=== PATIENT | female | born 1955 | race Two or more races ===

== ENCOUNTER 2020-02-14 01:11 | Inpatient (IN) | payer MEDICARE ==
[~2020-02-14] VITALS: Ht 157.5 cm; Wt 86.3 kg
[2020-02-14] MEDS ORDERED: ranitidine PO (02:51)
[2020-02-14] MEDS ORDERED: NITR0.4T48 SL (02:51)
[2020-02-14] MEDS ORDERED: GLIM2TAB PO (02:51)
[2020-02-14] MEDS ORDERED: APIX5TAB PO (02:51)
[2020-02-14] MEDS ORDERED: ROSU20TA2 PO (02:51)
[2020-02-14] MEDS ORDERED: CALC1TAB30 PO (02:51)
[2020-02-14] MEDS ORDERED: ICOS1CAP PO (02:51)
[2020-02-14] MEDS ORDERED: ASPI-1420 PO (02:51)
[2020-02-14] MEDS ORDERED: MICO45CR12 TOP (02:51)
[2020-02-14] MEDS ORDERED: MICO25PO2 MC (02:51)
[2020-02-14] MEDS ORDERED: LINA5TAB PO (02:51)
[2020-02-14] MEDS ORDERED: LEVO25TA7 PO (02:51)
[2020-02-14] MEDS ORDERED: INSU3INS8 SQ (02:51)
[2020-02-14] MEDS ORDERED: PREG75CA PO (02:51)
--- NOTE | 2020-02-14 03:00 | NUR ---
tele concession stand attendant initial notes Received direct admit pt from [place] . Pt is alert oriented x3 able to communicate using paper and pen because pt have problem of heard of hearing . i also noticed she used magnifying glass to read and per pt she had problem because of her blood sugar problem. skin warm and dry to touch, not in any distress noted. oriented where she at and how to used the call light system and pt understood well. applied tele monitor and educate pt what the purpose of it . Sinus Rhythm per monitor . kept her warm and comfortable at all times. will continue monitoring.
[2020-02-14 03:41] VITALS: BP 128/76
[2020-02-14] MEDS ORDERED: ZOLPIDEM TARTRATE 5 MG TABLET PO PRN (06:00)
[2020-02-14] MEDS ORDERED: ONDANSETRON HCL/PF 4 MG/2 ML VIAL IVP PRN (06:00)
[2020-02-14] MEDS ORDERED: NITROGLYCERIN 0.4 MG/TAB BOTTLE SL PRN (06:00)
[2020-02-14] MEDS ORDERED: ACETAMINOPHEN 325 MG TABLET PO PRN (06:00)
[2020-02-14] MEDS: HYDROCODONE/APAP 5/325MG TABLET PO PRN (06:17)
[2020-02-14 07:13] LABS: CALCIUM, SERUM 9.1 mg/dL (8.5-10.1); CARBON DIOXIDE 27 mmol/L (21-32); CHLORIDE 104 mmol/L (98-107); CREATININE 1.7 mg/dL (0.6-1.3); GLUCOSE 169 mg/dL (74-106); POTASSIUM 3.9 mmol/L (3.5-5.1); SODIUM SERUM 141 mmol/L (136-145); UREA NITROGEN, BLOOD 37 mg/dL (7-18)
[2020-02-14 07:17] LABS: BASOPHILS % (AUTO) 0.6 % (0.0-2.0); EOSINOPHILS % (AUTO) 3.7 % (0.0-6.0); HEMATOCRIT 37 % (33-45); HEMOGLOBIN 12.1 g/dL (11.5-14.8); LYMPHOCYTES # (AUTO) 2.2 /CMM (0.8-4.8); LYMPHOCYTES % (AUTO) 32.9 % (20.0-44.0); MEAN CORPUSCULAR HGB CONC 33 g/dl (31.0-36.0); MEAN CORPUSCULAR VOLUME 87 fL (82-100); MONOCYTES # (AUTO) 0.5 /CMM (0.1-1.30); MONOCYTES % (AUTO) 7.3 % (2.0-12.0); NEUTROPHILS # (AUTO) 3.7 /CMM (1.8-8.9); NEUTROPHILS % (AUTO) 55.5 % (43.0-81.0); PLATELET COUNT (AUTO) 234 /CMM (150-450); WHITE BLOOD COUNT (AUTO) 6.6 K/uL (4.3-11.0)
[2020-02-14 07:20] LABS: CHOLESTEROL 245 mg/dL (<200); HDL CHOLESTEROL 33 mg/dL (40-60); LDL 119 mg/dL (0-99); TRIGLYCERIDES 361 mg/dL (30-150)
[2020-02-14 07:26] LABS: ALANINE AMINOTRANSFERASE 17 U/L (12-78); ALBUMIN 3.4 g/dL (3.4-5.0); ALKALINE PHOSPHATASE 95 U/L (46-116); ASPARTATE AMINOTRANSFERASE 12 U/L (15-37); B-TYPE NATRIURETIC PEPTIDE 268 PG/ML (0-125); BILIRUBIN,TOTAL 0.4 mg/dL (0.2-1.0); PHOSPHORUS 3.9 mg/dL (2.5-4.9); TOTAL PROTEIN, SERUM 7.4 g/dL (6.4-8.2)
--- NOTE | 2020-02-14 07:29 | NUR ---
tele stock fitter closing notes pt sleeping comfortably in bed after pain meds given. no distress and discomfort noted at this time. tele SR per monitor. Vital signs stable and kept her warm and comfortable at all times. family called earlier because they want to speak to MD regarding the plan and pt condition. kept her warm and comfortable at all times. blood sugar checked 155 , no insulin given at this time because NPO for the meantime waiting for wireless internet installer consult. Endorse to am nurse for continuity of care. place call light at reach.
[2020-02-14] MEDS: LEVOTHYROXINE SODIUM 25 MCG TABLET PO SCH (07:30)
[2020-02-14] MEDS: PANTOPRAZOLE 40 MG TABLET.DR PO SCH (07:30)
[2020-02-14 08:00] VITALS: BP 118/62
--- NOTE | 2020-02-14 08:01 | NUR ---
DIRECTOR OF CARDIOLOGY SERVICE LINE OPENING NOTES BEDSIDE ENDORSEMENT DONE. PATIENT IS SLEEPING IN BED BUT ABLE TO BE AWAKENED. A/O X4, [place]- AND [place]-SPEAKING, ABLE TO MAKE NEEDS KNOWN. VERBALLY RESPONSIVE BUT CAMPO, USE OF COMMUNICATION BOARD UTILIZED, PATIENT USES MAGNIFYING GLASS FOR BETTER READING. BREATHING EVEN AND UNLABORED IN ROOM AIR, NO RESPIRATORY DISTRESS NOTED. IV LINE AT RIGHT AC #20, INTACT AND PATENT. CURRENTLY NPO FOR CARDIO CONSULT. SAFETY PRECAUTION IN PLACE: BED LOCKED AND ON LOWEST POSITION, SIDERAILS UP X2, CALL LIGHT W/IN REACH. WILL CONTINUE TO MONITOR.
[2020-02-14 08:42] LABS: IRON, SERUM 51 ug/dl (50-175); TOTAL IRON BINDING CAPACITY 292 ug/dl (250-450)
[2020-02-14 08:56] LABS: FERRITIN 244 ng/mL (8-388)
[2020-02-14] MEDS ORDERED: ATORVASTATIN 40 MG TABLET PO SCH (09:00)
[2020-02-14] MEDS ORDERED: INSULN 70/30 ASP+PRT/ASP MIX 100 UNIT/ML CARTRIDGE SQ SCH ×2 (09:00→17:00)
[2020-02-14] MEDS: ATORVASTATIN 40 MG TABLET PO SCH (10:06)
[2020-02-14] MEDS: BLOOD SUGAR DIAGNOSTIC 1 EACH STRIP IN SCH ×4 (10:06→22:31)
[2020-02-14] MEDS: DOCUSATE SODIUM 100 MG CAPSULE PO SCH ×2 (10:06→16:47)
[2020-02-14] MEDS: APIXABAN 5 MG TABLET PO SCH ×2 (10:07→16:48)
[2020-02-14] MEDS: GLIMEPIRIDE 1 MG TABLET PO SCH (10:10)
[2020-02-14] MEDS: CALCIUM CARB 600MG /VIT D 1 EACH TABLET PO SCH ×2 (10:10→16:48)
[2020-02-14] MEDS: LINAGLIPTIN 5 MG TABLET PO SCH (10:10)
[2020-02-14] MEDS: ASPIRIN EC 81 MG TABLET.DR PO SCH (10:11)
[2020-02-14] MEDS: CARVEDILOL 3.125 MG TABLET PO SCH ×2 (10:11→20:58)
[2020-02-14] MEDS: PREGABALIN 25 MG CAPSULE PO SCH ×2 (10:12→16:48)
[2020-02-14] MEDS: IV NS 0.9% 1,000 ML IV PRN ×2 (10:40→19:23)
--- NOTE | 2020-02-14 11:08 | NUR ---
RN NOTES PATIENT'S VASCEPA AND NOVOLOG FLEXPEN PROVIDED BY PATIENT AND GIVEN TO PHARMACY.
[2020-02-14] MEDS: INSULIN REGULAR, HUMAN 100 UNIT/ML 3 ML VIAL SQ PRN ×3 (12:29→22:30)
--- NOTE | 2020-02-14 15:48 | NUR ---
RN NOTES SPOKE W/ PHARMACIST AND INQUIRED ABOUT PATIENT'S INSULIN. PATIENT PROVIDED 2 INSULIN PENS: NOVOLOG AND TRESIBA FLEXTOUCH.
[2020-02-14 16:00] VITALS: BP 103/58
[2020-02-14] MEDS ORDERED: INSU100I24 SQ (16:35)
--- NOTE | 2020-02-14 16:43 | NUR ---
RN NOTES MED RECON DONE FOR NOVOLOG AND TRESIBA. PER PATIENT, SHE IS TAKING NOVOLOG 20UNITS TWICE A DAY BEFORE MEALS AND TRESIBA 30UNITS ONCE DAILY. INFORMED PHARMACIST OF PATIENT MEDS.
[2020-02-14] MEDS: VASCEPA 1 GRAM PO SCH (16:46)
[2020-02-14] MEDS: INSULIN ASPART/LISPRO 100 UNIT/ML CARTRIDGE SQ SCH (17:27)
--- NOTE | 2020-02-14 18:43 | NUR ---
PRODUCT MGMT DEV MANAGER CLOSING NOTES PATIENT IS IN BED RESTING, AWAKE AND VERBALLY RESPONSIVE. A/O X4, [place]- AND [place]-SPEAKING, ABLE TO MAKE NEEDS KNOWN. PATIENT IS [place], COMMUNICATES VIA WRITTEN FORMAT AND USES MAGNIFYING GLASS FOR BETTER READING. ON TELE MONITORING W/ READING OF SR, HR IN MID 60'S TO 70'S, NO CARDIAC DISTRESS NOTED. BREATHING EVEN AND UNLABORED IN ROOM AIR, NO RESPIRATORY DISTRESS NOTED. IV LINE AT RIGHT AC #20, INTACT AND PATENT, IVF OF NS @ 100ML/HR, INFUSING WELL. ABLE TO AMBULATE USING ASSISTIVE DEVICE W/ MIN ASSIST. VOIDED X1 TODAY. ALL DUE MEDS GIVEN. SAFETY PRECAUTION MAINTAINED: BED LOCKED AND ON LOWEST POSITION, SIDERAILS UP X2, CALL LIGHT W/IN REACH. ENDORSE TO GREEN CHAIN OFFBEARER RN FOR LANDON.
--- NOTE | 2020-02-14 19:10 | NUR ---
STUDIO MUSICIAN OPENING NOTES: RECEIVED PATIENT IN BED, ASLEEP,AROUSABLE. NO S/S OF DISTRESS NOTED. NO COMPLAIN OF PAIN. CALL LIGHT WITHIN REACH. BED IN LOWEST AND LOCKED POSITION. A/O X4.
[2020-02-14 20:00] VITALS: BP 91/52
[2020-02-15] VITALS: BP 105/59
[2020-02-15 04:00] VITALS: BP 124/59
--- NOTE | 2020-02-15 06:40 | NUR ---
EDGING MACHINE CATCHER CLOSING NOTES: PATIENT RESTING IN BED. A/O X4. NO S/S OF DISTRESS NOTED. NO COMPLAIN OF PAIN. CALL LIGHT WITHIN REACH. BED IN LOWEST AND LOCKED POSITION. RESTED THROUGHOUT THE NIGHT. AMBULATORY USING HER OWN WALKER.
[2020-02-15 06:49] LABS: ALBUMIN 3.2 g/dL (3.4-5.0); BILIRUBIN,TOTAL 0.4 mg/dL (0.2-1.0); CALCIUM, SERUM 9.5 mg/dL (8.5-10.1); CREATININE 2.1 mg/dL (0.6-1.3); POTASSIUM 4.4 mmol/L (3.5-5.1); TOTAL PROTEIN, SERUM 6.9 g/dL (6.4-8.2)
[2020-02-15] MEDS: INSULIN REGULAR, HUMAN 100 UNIT/ML 3 ML VIAL SQ PRN ×2 (07:01→12:25)
[2020-02-15] MEDS: BLOOD SUGAR DIAGNOSTIC 1 EACH STRIP IN SCH ×4 (07:03→21:30)
--- NOTE | 2020-02-15 07:30 | NUR ---
Opening Notes: Report received from night RN. Patient alert, awake, and oriented x4. Able to make needs known. Patient hard of hearing, cooperative, and compliant with treatments, medications and care. No SOB noted, no s/s of distress or discomfort. No c/o pain. Accuchecks done, no s/s of hypo/hyperglycemia noted. Had breakfast, tolerated well. Due medications given as ordered. Assisted with ADLs and transfers. Kept skin clean and dry. Patient able to ambulate and turn and reposition herself. Needs anticipated and attended. Fall precautions observed. Call light within reach.
[2020-02-15 08:00] VITALS: BP 108/45
--- NOTE | 2020-02-15 09:00 | NUR ---
Telemetry discontinued as ordered. No s/s of distress or discomfort. VS WNL.
[2020-02-15] MEDS: PANTOPRAZOLE 40 MG TABLET.DR PO SCH (09:40)
[2020-02-15] MEDS: GLIMEPIRIDE 1 MG TABLET PO SCH (09:41)
[2020-02-15] MEDS: LEVOTHYROXINE SODIUM 25 MCG TABLET PO SCH (09:41)
[2020-02-15] MEDS: VASCEPA 1 GRAM PO SCH ×2 (09:42→17:15)
[2020-02-15] MEDS: ASPIRIN EC 81 MG TABLET.DR PO SCH (09:42)
[2020-02-15] MEDS: DOCUSATE SODIUM 100 MG CAPSULE PO SCH ×2 (09:42→17:13)
[2020-02-15] MEDS: CALCIUM CARB 600MG /VIT D 1 EACH TABLET PO SCH ×2 (09:42→17:13)
[2020-02-15] MEDS: PREGABALIN 25 MG CAPSULE PO SCH ×2 (09:43→17:13)
[2020-02-15] MEDS: INSULIN DEGLUDEC SQ SCH (09:43)
[2020-02-15] MEDS: LINAGLIPTIN 5 MG TABLET PO SCH (09:43)
[2020-02-15] MEDS: ATORVASTATIN 40 MG TABLET PO SCH (09:43)
[2020-02-15] MEDS: INSULIN ASPART/LISPRO 100 UNIT/ML CARTRIDGE SQ SCH ×2 (09:46→17:05)
[2020-02-15] MEDS: CARVEDILOL 3.125 MG TABLET PO SCH ×2 (09:50→21:00)
[2020-02-15] MEDS: APIXABAN 2.5 MG TABLET PO SCH ×2 (09:56→17:14)
[2020-02-15 10:39] LABS: THYROID STIMULATING HORMONE 1.131 uIU/mL (0.358-3.74)
[2020-02-15] MEDS: IV NS 0.9% 1,000 ML IV PRN (14:23)
[2020-02-15 16:00] VITALS: BP 116/59
[2020-02-15] MEDS ORDERED: APIXABAN 5 MG TABLET PO SCH (17:00)
--- NOTE | 2020-02-15 18:16 | NUR ---
Closing Notes: Patient alert, awake and oriented x4. Patient able to make needs known. no c/o pain. Patient ambulatory with walker, able to turn and reposition herself. Assisted with ADLs and transfers. Linens changed, kept clean and dry. Accuchecks done, no s/s of hypo/hyperglycemia noted. Due medications given, no ASE noted. Needs anticipated and attended. Fall precautions observed. Call light within reach. VS WNL.
--- NOTE | 2020-02-15 19:30 | NUR ---
RN NOTE RECEIVED PATIENT SEATED IN BED, AO X 4, IN NO S/SX OF ACUTE DISTRESS AT THIS TIME. NO SOB NOTED. PATIENT'S BREATHING IS EVEN AND UNLABORED, SATURATING 95% ON ROOM AIR, HR IS 72. NOTED IV SITE AT RIGHT AC G20, PATENT AND FLUSHING WELL,NO S/S OF INFECTION OR INFILTRATION, WITH NS INFUSING AT 100 ML/HR. PATIENT IS AMBULATORY WITH WALKER ASSISTANCE. SAFETY MEASURES IMPLEMENTED PER PROTOCOL. PATIENT BED ALARM IS ON. HEAD OF BED ELEVATED. BED IS LOCKED, IN LOWEST POSITION AND SIDE RAILS UP. CALL LIGHT WITHIN REACH OF THE PATIENT. WILL CONTINUE TO MONITOR AND REASSESS FOR ANY CHANGES.
[2020-02-15 20:00] VITALS: BP 85/45
--- NOTE | 2020-02-15 21:00 | NUR ---
RN NOTE NOTED BP 85/45, AND BLOOD GLUCOSE 62. SCHEDULED CARVEDILOL 3.125 MG WAS HELD OFF FOR NOW, AND INSTRUCTED PATIENT TO ELEVATE BLE, AND TO DRINK OF ORANGE JUICE. BP RECHECKED, 97/51, BLOOD SUGAR RECHECKED, RESULTED 112. WILL CONTINUE TO MONITOR.
[2020-02-16] VITALS (7 sets, daily range): BP systolic 85–123; BP diastolic 45–66
[2020-02-16] MEDS: IV NS 0.9% 1,000 ML IV PRN (05:59)
[2020-02-16 06:30] LABS: BASOPHILS # (AUTO) 0.1 /CMM (0.0-0.2); BASOPHILS % (AUTO) 0.8 % (0.0-2.0); EOSINOPHILS % (AUTO) 4.3 % (0.0-6.0); HEMATOCRIT 31 % (33-45); HEMOGLOBIN 10.7 g/dL (11.5-14.8); LYMPHOCYTES # (AUTO) 2.3 /CMM (0.8-4.8); LYMPHOCYTES % (AUTO) 33.3 % (20.0-44.0); MEAN CORPUSCULAR HGB CONC 34 g/dl (31.0-36.0); MEAN CORPUSCULAR VOLUME 87 fL (82-100); MONOCYTES # (AUTO) 0.5 /CMM (0.1-1.30); MONOCYTES % (AUTO) 7.1 % (2.0-12.0); NEUTROPHILS # (AUTO) 3.7 /CMM (1.8-8.9); NEUTROPHILS % (AUTO) 54.5 % (43.0-81.0); PLATELET COUNT (AUTO) 190 /CMM (150-450); RED BLOOD CELL COUNT(AUTO) 3.61 MIL/uL (4.0-5.2); WHITE BLOOD COUNT (AUTO) 6.9 K/uL (4.3-11.0)
[2020-02-16 07:11] LABS: ALANINE AMINOTRANSFERASE 15 U/L (12-78); ALBUMIN 2.9 g/dL (3.4-5.0); ALKALINE PHOSPHATASE 83 U/L (46-116); ASPARTATE AMINOTRANSFERASE 11 U/L (15-37); BILIRUBIN,TOTAL 0.3 mg/dL (0.2-1.0); CALCIUM, SERUM 9.1 mg/dL (8.5-10.1); CARBON DIOXIDE 25 mmol/L (21-32); CHLORIDE 106 mmol/L (98-107); CREATININE 1.6 mg/dL (0.6-1.3); GLUCOSE 122 mg/dL (74-106); MAGNESIUM 1.9 mg/dL (1.8-2.4); PHOSPHORUS 3.6 mg/dL (2.5-4.9); POTASSIUM 4.2 mmol/L (3.5-5.1); SODIUM SERUM 139 mmol/L (136-145); TOTAL PROTEIN, SERUM 6.4 g/dL (6.4-8.2); UREA NITROGEN, BLOOD 38 mg/dL (7-18)
[2020-02-16] MEDS: BLOOD SUGAR DIAGNOSTIC 1 EACH STRIP IN SCH ×4 (07:24→21:37)
[2020-02-16] MEDS: INSULIN ASPART/LISPRO 100 UNIT/ML CARTRIDGE SQ SCH ×2 (07:30→17:16)
--- NOTE | 2020-02-16 07:30 | NUR ---
MS/RN INSULIN HELD INSULIN NOVOLOG HELD. PATIENT BLOOD SUGAR 128. ADMINISTERED TRESIBA 30 UNITS. WILL RECHECK BLOOD SUGAR
--- NOTE | 2020-02-16 07:45 | NUR ---
MS/RN OPENING NOTE PATIENT RECEIVED FROM MICROWAVE SUPERVISOR. PATIENT IS IN BED LAYING COMFORTABLY.. VS WITHIN NORMAL RANGE. NO ACUTE DISTRESS NOTED. SAFETY PRECAUTION IN PLACE. PATIENT BED IS LOCKED AND IN LOWEST POSITION. CALL LIGHT WITHIN REACH. WILL CONTINUE TO MONITOR AND ENSURE SAFETY.
--- NOTE | 2020-02-16 08:30 | NUR ---
MS/RN S/B DR. YODER S/B DR. YODER ORDERED MYOCARDIAL STRESS TEST FOR TOMORROW. CONSENT FORM TO BE OBTAINED.
[2020-02-16] MEDS: CALCIUM CARB 600MG /VIT D 1 EACH TABLET PO SCH ×2 (08:40→17:13)
[2020-02-16] MEDS: APIXABAN 2.5 MG TABLET PO SCH ×2 (08:41→17:14)
[2020-02-16] MEDS: LEVOTHYROXINE SODIUM 25 MCG TABLET PO SCH (08:43)
[2020-02-16] MEDS: ATORVASTATIN 40 MG TABLET PO SCH (08:43)
[2020-02-16] MEDS: DOCUSATE SODIUM 100 MG CAPSULE PO SCH ×2 (08:43→17:13)
[2020-02-16] MEDS: ASPIRIN EC 81 MG TABLET.DR PO SCH (08:43)
[2020-02-16] MEDS: GLIMEPIRIDE 1 MG TABLET PO SCH (08:43)
[2020-02-16] MEDS: PANTOPRAZOLE 40 MG TABLET.DR PO SCH (08:44)
[2020-02-16] MEDS: VASCEPA 1 GRAM PO SCH ×2 (08:45→17:14)
[2020-02-16] MEDS: CARVEDILOL 3.125 MG TABLET PO SCH ×2 (08:45→21:00)
[2020-02-16] MEDS: PREGABALIN 25 MG CAPSULE PO SCH ×2 (08:52→17:13)
[2020-02-16] MEDS: LINAGLIPTIN 5 MG TABLET PO SCH (08:52)
[2020-02-16] MEDS: INSULIN DEGLUDEC SQ SCH (08:53)
--- NOTE | 2020-02-16 11:00 | NUR ---
MS/RN CONSENT FORM CONSENT FORM SIGNED BY PATIENT CONSENTED FOR NM MYOCARDIAL STRESS TEST. PLACED IN FRONT OF CHART.
--- NOTE | 2020-02-16 11:18 | NUR ---
MS/RN S/B DR RUBIN S/B DR RUBIN. ORDERED TO HOLD IV FLUIDS UNTIL MIDNIGHT 2400. THEN RESUME AT CURRENT RATE, 100ML/HR, CAUSE PATIENT WILL BE NPO.
[2020-02-16] MEDS: INSULIN REGULAR, HUMAN 100 UNIT/ML 3 ML VIAL SQ PRN ×2 (12:20→21:37)
--- NOTE | 2020-02-16 12:28 | NUR ---
MS/RN INSULIN GIVEN REASSESSED PATIENTS BLOOD SUGAR, 193. INSULIN REGULAR 3 UNITS GIVEN. WILL RECHECK BLOOD SUGAR.
--- NOTE | 2020-02-16 18:32 | NUR ---
MS/RN CLOSING NOTE PATIENT REMAINS IN STABLE CONDITION. A/O X4, HARD OF HEARING. PATIENT ON RA WITH O2 SAT OF 100. NO DISTRESS NOTED. CONTINUES TO DENY ANY CHEST PAIN OR DISCOMFORT. AWARE OF THE NEED TO BE NPO OF 2400 FOR MYOCARDIAL STRESS TEST. CONSENT FORM SIGNED AND PLACED IN FRONT OF CHART. WILL CONTINUE TO MONITOR AND ENDORSE TO BRIDAL STYLIST SALES CONSULTANT.
--- NOTE | 2020-02-16 19:20 | NUR ---
RN CLOSING NOTES Received patient asleep on bed, on RA no signs of discomfort/respiratory distress noted at this time. Kept on bed clean, dry and comfortable. Call light within easy reach. Will continue to monitor accordingly. Addendum: 02/16/20 at 2004 by RAPHAEL HEARN RN RN OPENING NOTES
[2020-02-17] MEDS: BLOOD SUGAR DIAGNOSTIC 1 EACH STRIP IN SCH ×4 (06:37→21:50)
--- NOTE | 2020-02-17 06:40 | NUR ---
RN CLOSING NOTES Pt asleep, no new complaints made. Kept on NPO for stress test this AM. BS 137. All nursing needs attended. Pt refused IVF throughout the shift. Kept on bed clean, dry and comfortable. Endorsed.
[2020-02-17] MEDS: LEVOTHYROXINE SODIUM 25 MCG TABLET PO SCH (07:30)
[2020-02-17] MEDS: PANTOPRAZOLE 40 MG TABLET.DR PO SCH (07:30)
[2020-02-17] MEDS: INSULIN ASPART/LISPRO 100 UNIT/ML CARTRIDGE SQ SCH ×2 (07:30→17:30)
[2020-02-17 07:36] LABS: BASOPHILS % (AUTO) 0.6 % (0.0-2.0); EOSINOPHILS % (AUTO) 3.9 % (0.0-6.0); HEMATOCRIT 32 % (33-45); HEMOGLOBIN 10.7 g/dL (11.5-14.8); LYMPHOCYTES # (AUTO) 2.3 /CMM (0.8-4.8); LYMPHOCYTES % (AUTO) 33.8 % (20.0-44.0); MEAN CORPUSCULAR HGB CONC 34 g/dl (31.0-36.0); MEAN CORPUSCULAR VOLUME 87 fL (82-100); MONOCYTES # (AUTO) 0.5 /CMM (0.1-1.30); NEUTROPHILS # (AUTO) 3.7 /CMM (1.8-8.9); NEUTROPHILS % (AUTO) 53.7 % (43.0-81.0); PLATELET COUNT (AUTO) 194 /CMM (150-450); RED BLOOD CELL COUNT(AUTO) 3.63 MIL/uL (4.0-5.2); WHITE BLOOD COUNT (AUTO) 6.9 K/uL (4.3-11.0)
--- NOTE | 2020-02-17 07:40 | NUR ---
RN NOTE THE PATIENT IS RECEIVED IN BED. THE PATIENT IS ALERT AND ORIENTED X4. PATIENT IS HARD OF HEARING AND HAS POOR VISION. ABLE TO COMMUNICATE VERBALLY AND WRITING ON A PAPER. DENIES PAIN. IN ROOM AIR AND DENIES SOB. RESPIRATION REGULAR AND UNLABORED. PATIENT IN NO APPARENT DISTRESS. RAC G 20 PATENT AND SALINE LOCKED. BED LOW AND LOCKED. SIDE RAILS UP X2. CALL LIGHT WITHIN REACH. WILL CONTINUE TO MONITOR.
[2020-02-17 07:57] LABS: CALCIUM, SERUM 9.3 mg/dL (8.5-10.1); CREATININE 1.4 mg/dL (0.6-1.3); POTASSIUM 4.2 mmol/L (3.5-5.1)
[2020-02-17 08:00] VITALS: BP 112/59
--- NOTE | 2020-02-17 08:53 | NUR ---
RN NOTE THE PATIENT REFUSED 0730 BLOOD SUGAR CHECK DESPITE EXPLAINING RISKS AND BENEFITS. NOVOLOG 20 UNITS DUE AT 0730 IS NOT ADMINISTERED DUE TO PATIENT REFUSED BLOOD SUGAR CHECK AND THE PATIENT BEING NPO FOR DIAGNOSTIC TESTING. PATIENT`S LAST BLOOD SUGAR WAS TAKEN AT 0608 AND IT WAS 137.
[2020-02-17] MEDS ORDERED: REGADENOSON 0.4 MG/5 ML DISP.SYRIN IVP ONE (09:00)
[2020-02-17] MEDS: HYDROCODONE/APAP 5/325MG TABLET PO PRN (10:17)
[2020-02-17] MEDS: DOCUSATE SODIUM 100 MG CAPSULE PO SCH ×2 (10:17→17:23)
[2020-02-17] MEDS: PREGABALIN 25 MG CAPSULE PO SCH ×2 (10:17→17:23)
[2020-02-17] MEDS: CARVEDILOL 3.125 MG TABLET PO SCH ×2 (10:18→21:43)
[2020-02-17] MEDS: ASPIRIN EC 81 MG TABLET.DR PO SCH (10:18)
[2020-02-17] MEDS: LINAGLIPTIN 5 MG TABLET PO SCH (10:18)
[2020-02-17] MEDS: ATORVASTATIN 40 MG TABLET PO SCH (10:18)
[2020-02-17] MEDS: GLIMEPIRIDE 1 MG TABLET PO SCH (10:18)
[2020-02-17] MEDS: VASCEPA 1 GRAM PO SCH ×2 (10:19→17:24)
[2020-02-17] MEDS: APIXABAN 2.5 MG TABLET PO SCH ×2 (10:29→17:00)
[2020-02-17] MEDS: INSULIN DEGLUDEC SQ SCH (10:45)
--- NOTE | 2020-02-17 10:47 | NUR ---
RN NOTE TRESIBA GIVEN AFTER CHECKING BLOOD SUGAR WHICH WAS 162. PATIENT EATING AT THIS TIME.
[2020-02-17] MEDS: CALCIUM CARB 600MG /VIT D 1 EACH TABLET PO SCH ×2 (10:56→17:23)
--- NOTE | 2020-02-17 11:07 | NUR ---
RN NOTE MORNING MEDICATIONS WERE ADMINISTERED LATE BECAUSE THE PATIENT HAS BEEN NPO SINCE MIDNIGHT WAITING FOR DIAGNOSTIC TEST. SO, THE MEDICATIONS WERE GIVEN AFTER THE TEST.
[2020-02-17] MEDS: INSULIN REGULAR, HUMAN 100 UNIT/ML 3 ML VIAL SQ PRN ×4 (12:05→21:48)
[2020-02-17 16:00] VITALS: BP 104/54
--- NOTE | 2020-02-17 17:37 | NUR ---
RN NOTE ELIQUIS 2.5 DUE AT 1700 IS HELD PER MICHAEL RUBIN SINCE THE PATIENT IS SCHEDULED FOR PROCEDURE TOMORROW AM.
--- NOTE | 2020-02-17 18:12 | NUR ---
RN NOTE THE PATIENT ALERT AND ORIENTED X4. PATIENT IS HARD OF HEARING AND HAS POOR VISION. PATIENT ABLE COMMUNICATE VERBALLY AND NURSES ABLE TO COMMUNICATE WITH THE PATIENT USING PEN AND PAPER. THE PATIENT DENIES PAIN. IN ROOM AIR AND SATURATION IS AT 96%. DENIES SOB. RESPIRATION REGULAR AND UNLABORED. RAC G 20 PATENT AND NS INFUSING AT 100 ML/HR AND NO S/S INFILTRATION NOTED. BED LOW AND LOCKED. SIDE RIALS UP X2. CALL LIGHT WITHIN REACH. WILL ENDORSE TO PHYSICIAN ASSISTANT PRIMARY CARE.
--- NOTE | 2020-02-17 19:59 | NUR ---
MS/RN OPENING NOTE Patient awake sitting up in chair. A/O x4, hard of hearing with poor vision. Breathing even, clear, unlabored on room air. No acute distress or SOB. Skin is warm, pink, dry, appropriate for ethnicity, intact. Abdomen large, round soft, non-tender. BS hypoactive. Patient on cardiac diet. Urine output clear, yellow, without difficulty. Patient is ambulatory with BRP. IV site RAC 20g running NS @ 100 ml/hr, no redness or infiltration. Call light within reach.
[2020-02-17 20:00] VITALS: BP 130/97
[2020-02-17 23:40] VITALS: BP 135/91
--- NOTE | 2020-02-18 06:05 | NUR ---
MS/RN CLOSING NOTE Patient awake sitting up in chair. A/O x4, hard of hearing with poor vision. Breathing even, clear, unlabored on room air. No acute distress or SOB. Abdomen large, round soft, non-tender, no bowel movement this shift. Patient is NPO pending cardiac catheterization. Urine output clear, yellow, without difficulty. Patient is ambulatory with BRP. IV site RAC 20g running NS @ 100 ml/hr, no redness or infiltration. Call light within reach.
[2020-02-18] MEDS: BLOOD SUGAR DIAGNOSTIC 1 EACH STRIP IN SCH ×4 (06:32→22:10)
[2020-02-18] MEDS: LEVOTHYROXINE SODIUM 25 MCG TABLET PO SCH (06:33)
[2020-02-18] MEDS: INSULIN ASPART/LISPRO 100 UNIT/ML CARTRIDGE SQ SCH ×2 (06:33→16:48)
[2020-02-18] MEDS: PANTOPRAZOLE 40 MG TABLET.DR PO SCH (06:33)
--- NOTE | 2020-02-18 06:34 | NUR ---
MS/RN NOTE Patient blood sugar 144. Held insulin d/t patient NPO pending cardiac catheterization. Will continue to monitor.
[2020-02-18 08:00] VITALS: BP 97/57
--- NOTE | 2020-02-18 08:00 | NUR ---
RN OPENING NOTE Patient is resting in bed, A/O x4, showing no signs of acute distress or SOB, stable on RA. Patient denies pain at this time, patient is able to ambulate to the bathroom steady gait. Per Dr. Molina, patient is scheduled to have cardiac cath tomorrow in AM. Held anticoagulants this AM. Bed is in lowest position, side rails x3 in upright position, call light is within reach, fall safety and aspiration precautions enforced. Will continue with plan of care.
[2020-02-18] MEDS: DOCUSATE SODIUM 100 MG CAPSULE PO SCH ×2 (08:18→16:47)
[2020-02-18] MEDS: CALCIUM CARB 600MG /VIT D 1 EACH TABLET PO SCH ×2 (08:18→16:47)
[2020-02-18] MEDS: ASPIRIN EC 81 MG TABLET.DR PO SCH (08:19)
[2020-02-18] MEDS: GLIMEPIRIDE 1 MG TABLET PO SCH (08:19)
[2020-02-18] MEDS: ATORVASTATIN 40 MG TABLET PO SCH (08:19)
[2020-02-18] MEDS: LINAGLIPTIN 5 MG TABLET PO SCH (08:19)
[2020-02-18] MEDS: APIXABAN 2.5 MG TABLET PO SCH ×2 (08:21→16:59)
[2020-02-18] MEDS: CARVEDILOL 3.125 MG TABLET PO SCH ×2 (08:21→21:32)
[2020-02-18] MEDS: PREGABALIN 25 MG CAPSULE PO SCH ×2 (08:25→16:47)
[2020-02-18] MEDS: VASCEPA 1 GRAM PO SCH ×2 (08:26→16:47)
[2020-02-18] MEDS: INSULIN DEGLUDEC SQ SCH (08:27)
[2020-02-18] MEDS: INSULIN REGULAR, HUMAN 100 UNIT/ML 3 ML VIAL SQ PRN ×3 (12:14→22:10)
[2020-02-18 16:00] VITALS: BP 114/63
--- NOTE | 2020-02-18 16:59 | NUR ---
MS RN NOTES HELD ELIQUIS PER MD DUE TO CARDIAC CATH TOMORROW.
[2020-02-18 17:00] VITALS: BP 114/63
--- NOTE | 2020-02-18 18:35 | NUR ---
RN CLOSING NOTE Patient is resting in bed, A/O x4, showing no signs of acute distress or SOB, stable on RA. Patient is able to ambulate to the bathroom steady gait. Per Dr. Molina, patient is scheduled to have cardiac cath tomorrow in AM, NPO after midnight, consent is signed. Held anticoagulants this AM per MD. All patient needs met, all due medications given, patient is independent with care. Bed is in lowest position, side rails x3 in upright position, call light is within reach, fall safety and aspiration precautions enforced. Will endorse to shift stacker for LANDON.
--- NOTE | 2020-02-18 19:47 | NUR ---
MS RN NOTE: Received patient AM nurse. Observed patient sitting on side of bed, awake, alert, and oriented x4. Patient is hard of hearing but has a notebook to cummunicate. Able to make needs known. Noted IV access on right AC, 20 gauge, dry and intact, patent, no redness or infiltration. Patient breathing well on room air, no SOB or acute respiratory distress noted. Safety precaution is in place, bed is in the lowest level, brakes are on, side rails x2 are up, and call light is within reach. Will continue to monitor.
[2020-02-18 20:00] VITALS: BP 121/69
[2020-02-18 20:44] VITALS: BP 121/69
--- NOTE | 2020-02-18 22:14 | NUR ---
MS RN NOTE: Patient glucose 57. Gave patient orange juice and raised her glucose level to 69. Gave patient more juice, will continue to monitor.
[2020-02-19] VITALS (35 sets, daily range): BP systolic 77–148; BP diastolic 38–85
--- NOTE | 2020-02-19 00:07 | NUR ---
MS RN NOTE: Rechecked patient's blood glucose and resulted in 107.
[2020-02-19] MEDS: BLOOD SUGAR DIAGNOSTIC 1 EACH STRIP IN SCH ×4 (06:33→21:26)
[2020-02-19] MEDS: INSULIN REGULAR, HUMAN 100 UNIT/ML 3 ML VIAL SQ PRN ×2 (06:34→21:18)
--- NOTE | 2020-02-19 06:54 | NUR ---
MS RN CLOSING NOTE: Patient in bed awake and alert. All needs met. Patient breathing well with no SOB or respiratory distress. Safety precaution in place, bed is in the lowest level, alarm is on, brakes are on, side rails x2 are up, and call light is within reach. Will endorse to next shift.
[2020-02-19] MEDS: LEVOTHYROXINE SODIUM 25 MCG TABLET PO SCH (07:30)
[2020-02-19] MEDS: PANTOPRAZOLE 40 MG TABLET.DR PO SCH (07:30)
[2020-02-19] MEDS: INSULIN ASPART/LISPRO 100 UNIT/ML CARTRIDGE SQ SCH ×2 (07:30→16:30)
--- NOTE | 2020-02-19 07:30 | NUR ---
MS/RN OPENING NOTE Patient resting in bed, A&O x 4, [place]. Denies any pain and discomfort at this time. Breathing even and non-labored on RA, no SOB noted. No cardiac distress noted. IV access noted on RAC #20 and L AC #18, both patent and intact, and flushing well. Sensation from all peripheral extremities intact. Side rails x 2 up, bed locked to its lowest position, call light in hand. Kept NPO, held insulin aspart/lispro, BS 71. Will continue with current medical management.
[2020-02-19 08:11] LABS: BASOPHILS # (AUTO) 0.1 /CMM (0.0-0.2); BASOPHILS % (AUTO) 0.7 % (0.0-2.0); EOSINOPHILS % (AUTO) 5.4 % (0.0-6.0); HEMATOCRIT 34 % (33-45); HEMOGLOBIN 11.3 g/dL (11.5-14.8); LYMPHOCYTES # (AUTO) 2.8 /CMM (0.8-4.8); LYMPHOCYTES % (AUTO) 37.1 % (20.0-44.0); MEAN CORPUSCULAR HGB CONC 34 g/dl (31.0-36.0); MEAN CORPUSCULAR VOLUME 88 fL (82-100); MONOCYTES # (AUTO) 0.6 /CMM (0.1-1.30); MONOCYTES % (AUTO) 7.4 % (2.0-12.0); NEUTROPHILS # (AUTO) 3.7 /CMM (1.8-8.9); NEUTROPHILS % (AUTO) 49.4 % (43.0-81.0); PLATELET COUNT (AUTO) 226 /CMM (150-450); RED BLOOD CELL COUNT(AUTO) 3.82 MIL/uL (4.0-5.2); WHITE BLOOD COUNT (AUTO) 7.5 K/uL (4.3-11.0)
[2020-02-19 08:22] LABS: ALBUMIN 3.2 g/dL (3.4-5.0); BILIRUBIN,TOTAL 0.3 mg/dL (0.2-1.0); CALCIUM, SERUM 9.6 mg/dL (8.5-10.1); CREATININE 1.5 mg/dL (0.6-1.3); MAGNESIUM 1.9 mg/dL (1.8-2.4); PHOSPHORUS 5.2 mg/dL (2.5-4.9); POTASSIUM 4.7 mmol/L (3.5-5.1); TOTAL PROTEIN, SERUM 7.1 g/dL (6.4-8.2)
[2020-02-19] MEDS ORDERED: IODIXANOL 150 ML IV ONE ×2 (08:53→09:23)
[2020-02-19] MEDS ORDERED: LIDOCAINE HCL/PF 1% 30 ML SDV ONE (08:54)
[2020-02-19] MEDS: CARVEDILOL 3.125 MG TABLET PO SCH ×2 (09:00→20:57)
[2020-02-19] MEDS: LINAGLIPTIN 5 MG TABLET PO SCH (09:00)
[2020-02-19] MEDS: DOCUSATE SODIUM 100 MG CAPSULE PO SCH ×2 (09:00→17:50)
[2020-02-19] MEDS: ATORVASTATIN 40 MG TABLET PO SCH (09:00)
[2020-02-19] MEDS: INSULIN DEGLUDEC SQ SCH (09:00)
[2020-02-19] MEDS: VASCEPA 1 GRAM PO SCH ×2 (09:00→17:50)
[2020-02-19] MEDS: PREGABALIN 25 MG CAPSULE PO SCH ×2 (09:00→17:50)
[2020-02-19] MEDS: APIXABAN 2.5 MG TABLET PO SCH ×2 (09:00→17:51)
[2020-02-19] MEDS: GLIMEPIRIDE 1 MG TABLET PO SCH (09:00)
[2020-02-19] MEDS: ASPIRIN EC 81 MG TABLET.DR PO SCH (09:00)
[2020-02-19] MEDS: CALCIUM CARB 600MG /VIT D 1 EACH TABLET PO SCH ×2 (09:00→17:50)
--- NOTE | 2020-02-19 09:00 | NUR ---
MS/RN NOTE Patient left to OR for cardiac cath. Groin prepped by CHIEF SUBSTATION OPERATOR. Consents and hospital documentation were brought in hand.
[2020-02-19] MEDS ORDERED: FENTANYL PF 100MCG/2ML AMPUL ONE ×2 (09:12→10:17)
[2020-02-19] MEDS ORDERED: HEPARIN SODIUM, PORCINE 5000 UNITS/1 ML VIAL ONE (09:13)
[2020-02-19] MEDS ORDERED: IV NS 0.9% 1,000 ML ONE (09:13)
[2020-02-19] MEDS ORDERED: MIDAZOLAM HCL 2 MG/2ML VIAL ONE (09:13)
[2020-02-19] MEDS ORDERED: HEPARIN SODIUM, PORCINE 1,000 UNIT/ML VIAL ONE (09:52)
[2020-02-19] MEDS ORDERED: IODIXANOL 320MG/ML 0 ML IV ONE (09:52)
[2020-02-19] MEDS ORDERED: IODIXANOL 320MG/ML 50 ML IV ONE (09:53)
[2020-02-19] MEDS ORDERED: ASPIRIN 81 MG TAB.CHEW ONE (09:57)
[2020-02-19] MEDS ORDERED: TICAGRELOR 90 MG TABLET PO ONE (09:57)
[2020-02-19] MEDS ORDERED: NOREPINEPHRINE 4 MG/4 ML AMPUL IV ONE (10:05)
[2020-02-19] MEDS ORDERED: IV NS 0.9% 0 ML IV ONE (10:05)
[2020-02-19 10:18] LABS: APPEARANCE,URINE CLOUDY (CLEAR); BILIRUBIN,URINE NEGATIVE (NEGATIVE); BLOOD, URINE NEGATIVE Ery/uL (NEGATIVE); COLOR,URINE YELLOW (YELLOW); KETONES,URINE NEGATIVE (NEGATIVE); LEUKOCYTE ESTERASE ,URINE NEGATIVE (NEGATIVE); NITRITE, URINE POSITIVE (NEGATIVE); PROTEIN,URINE NEGATIVE (NEGATIVE); UGLUCOSE NEGATIVE (NEGATIVE); UROBILINOGEN,URINE 0.2 EU/dL (0.2)
--- NOTE | 2020-02-19 11:00 | NUR ---
ICU/RN INITIAL NOTES,AM RECEIVED PT FROM CFO CONTROLLER S/P CARDIAC CATH. PT ALERT, AWAKE, FOLLOWS COMMANDS. PT TANACROSS. RIGHT RADIAL TR BAND IN PLACE, RIGHT FEM DRESSING INTACT, NO S/S OF BLEEDING NOTED. SINUS ON TELE. ON ROOM AIRR. WILL CONTINUE TO MONITOR.
[2020-02-19 11:25] LABS: BACTERIA,URINE Many /HPF (None Seen); RBC,URINE 0-2 /HPF (0-2); SQUAMOUS EPITHELIAL CELL,UR Few /HPF (None Seen)
[2020-02-19] MEDS ORDERED: IV NS 0.9% 1,000 ML IV PRN (12:00)
--- NOTE | 2020-02-19 12:06 | NUR ---
MS/RN NOTE Gave report to POULTRY FARM WORKER Yasmine, patient is transferred to ICU room 262. All belongings brought to the unit and room.
[2020-02-19] MEDS: IV NS 0.9% 1,000 ML IV PRN (12:22)
--- NOTE | 2020-02-19 12:30 | NUR ---
BLOOD GLUCOSE 57, D50 GIVEN, WILL REASSESS
[2020-02-19] MEDS: DEXTROSE 50%-WATER 50 ML DISP.SYRIN IV PRN ×3 (12:34→18:40)
--- NOTE | 2020-02-19 13:00 | NUR ---
BLOOD GLUCOSE 180, NOT APPEARING IN EMAR
--- NOTE | 2020-02-19 15:00 | NUR ---
ICU/RN: TR BAND 1230-3CC AIR REMOVED, NO S/S OF BLEEDING NOTED, WILL MONTIOR 1245-3CC AIR REMOVED, NO S/S OF BLEEDING NOTED 1300-3CC AIR REMOVED, NO S/S OF BLEEDING NOTED 29385TH AIR REMOVED, SOME BLEEDING NOTED, REINFLATED 2CC 1350 2CC AIR REMOVED, NO BLEEDING NOTED. 1420-TR BAND REMOVED, NO S/S OF BLEEDING NOTED CLEAR DRESSING APPLIED. WILL CONTINUE TO MONITOR. PULSES PRESENT AND PALPABLE.
--- NOTE | 2020-02-19 17:45 | NUR ---
ICU/RN: BS 42, D50 GIVEN WILL REASSESS
[2020-02-19] MEDS: TICAGRELOR 90 MG TABLET PO SCH (17:50)
--- NOTE | 2020-02-19 19:02 | NUR ---
ICU/RN: ENDING NOTES,AM REPORT WILL BE ENDORSED TO NIGHT NURSE FOR LANDON. PT ON ROOM AIR, NO DISTRESS NOTED. SINUS ON TELE. TR BAND REMOVED, NO BLEEDING, RIGHT FEM DRESSING CLEAN/DRY AND INTACT. PT ABLE TO TURN AND REPOSITION,SELF. ALL NEEDS ATTENDED TO, SAFETY MEASURES TAKEN, BED IN LOW POSITION, SIDE RAILS P, CALL LIGHT WITHIN REACH. WILL CONTINUE CARE.
--- NOTE | 2020-02-19 19:10 | NUR ---
ICU/RN: REPEAT BLOOD GLUCOSE 168. WILL CONTINUE TO MONITOR
[2020-02-20] VITALS (43 sets, daily range): BP systolic 60–152; BP diastolic 21–90
[2020-02-20 04:49] LABS: BASOPHILS % (AUTO) 0.5 % (0.0-2.0); HEMATOCRIT 34 % (33-45); HEMOGLOBIN 11.4 g/dL (11.5-14.8); LYMPHOCYTES # (AUTO) 1.6 /CMM (0.8-4.8); LYMPHOCYTES % (AUTO) 20.9 % (20.0-44.0); MEAN CORPUSCULAR HGB CONC 34 g/dl (31.0-36.0); MEAN CORPUSCULAR VOLUME 88 fL (82-100); MONOCYTES # (AUTO) 0.4 /CMM (0.1-1.30); MONOCYTES % (AUTO) 5.9 % (2.0-12.0); NEUTROPHILS # (AUTO) 5.2 /CMM (1.8-8.9); NEUTROPHILS % (AUTO) 69.7 % (43.0-81.0); PLATELET COUNT (AUTO) 218 /CMM (150-450); RED BLOOD CELL COUNT(AUTO) 3.87 MIL/uL (4.0-5.2); WHITE BLOOD COUNT (AUTO) 7.4 K/uL (4.3-11.0)
[2020-02-20 05:22] LABS: CALCIUM, SERUM 9.7 mg/dL (8.5-10.1); CREATININE 1.2 mg/dL (0.6-1.3); MAGNESIUM 1.9 mg/dL (1.8-2.4); PHOSPHORUS 3.9 mg/dL (2.5-4.9); POTASSIUM 4.2 mmol/L (3.5-5.1)
[2020-02-20] MEDS: HYDROCODONE/APAP 5/325MG TABLET PO PRN (05:52)
--- NOTE | 2020-02-20 06:28 | NUR ---
RN notes Received patient awake in bed with no distress noted. Breathing even and unabored. Room air well tolerated. Alert and oriented, with difficulty of breathing. Compalined of headache 12/01 at 0500. Gave norco with relief. Vital signs wnl. Kept clean and dry. Will endorse to next shift for continuity of care.
[2020-02-20] MEDS: INSULIN ASPART/LISPRO 100 UNIT/ML CARTRIDGE SQ SCH (07:30)
--- NOTE | 2020-02-20 07:30 | NUR ---
RN NOTES CHECK THE BLOOD SUGAR IS 96 NO LANTUS IS GIVEN
--- NOTE | 2020-02-20 07:35 | NUR ---
RN OPENING NOTE Patient resting in bed, A&O x 4, no hob. Denies any pain and discomfort at this time. Breathing even and non-labored on RA, no SOB noted. No cardiac distress noted. IV access noted on RAC #20 and L AC #18, both patent and intact, and flushing well with no sign of infiltration or infection. Sensation from all peripheral extremities intact.safety measdurements are implemented per hospital protocol. Side rails x 2 up, bed locked to its lowest position, call light in hand. will contunie to monitor
[2020-02-20] MEDS: PANTOPRAZOLE 40 MG TABLET.DR PO SCH (08:01)
[2020-02-20] MEDS: BLOOD SUGAR DIAGNOSTIC 1 EACH STRIP IN SCH ×2 (08:01→13:27)
[2020-02-20] MEDS: LEVOTHYROXINE SODIUM 25 MCG TABLET PO SCH (08:01)
[2020-02-20] MEDS: PREGABALIN 25 MG CAPSULE PO SCH (08:22)
[2020-02-20] MEDS: ASPIRIN EC 81 MG TABLET.DR PO SCH (08:23)
[2020-02-20] MEDS: CALCIUM CARB 600MG /VIT D 1 EACH TABLET PO SCH (08:23)
[2020-02-20] MEDS: ATORVASTATIN 40 MG TABLET PO SCH (08:23)
[2020-02-20] MEDS: LINAGLIPTIN 5 MG TABLET PO SCH (08:23)
[2020-02-20] MEDS: DOCUSATE SODIUM 100 MG CAPSULE PO SCH (08:23)
[2020-02-20] MEDS: APIXABAN 2.5 MG TABLET PO SCH (08:24)
[2020-02-20] MEDS: TICAGRELOR 90 MG TABLET PO SCH (08:37)
[2020-02-20] MEDS: VASCEPA 1 GRAM PO SCH (08:38)
[2020-02-20] MEDS: GLIMEPIRIDE 1 MG TABLET PO SCH (08:38)
[2020-02-20] MEDS: CARVEDILOL 3.125 MG TABLET PO SCH (08:51)
[2020-02-20] MEDS ORDERED: ASPIRIN 81 MG TAB.CHEW PO SCH (09:00)
[2020-02-20] MEDS: INSULIN DEGLUDEC SQ SCH (09:00)
--- NOTE | 2020-02-20 09:07 | NUR ---
RN NOTES CHECK THE BLOOD SUGAR IS 96 NO HOME MEDS TRESIBA IS GIVEN
--- NOTE | 2020-02-20 09:30 | NUR ---
RN NOTES RECEIVED ORDERS TO DC PT TO HER HOUSE
[2020-02-20] MEDS ORDERED: TICA90TA PO (11:21)
[2020-02-20] MEDS ORDERED: APIX2.5T PO (11:21)
[2020-02-20] MEDS ORDERED: ATOR40TA PO (11:21)
[2020-02-20] MEDS ORDERED: CARV3.122 PO (11:21)
[2020-02-20] MEDS: INSULIN REGULAR, HUMAN 100 UNIT/ML 3 ML VIAL SQ PRN (11:26)
--- NOTE | 2020-02-20 14:00 | NUR ---
RN NOTES PT IS STABLE TO GO HOME. DC IV. TOOK LAST VS. VS WNL. CALLED CAB, GAVE HER DC PAPERS AND HOME MEDS.
--- NOTE | 2020-02-24 08:49 | NUR ---
RN NOTES ON 02/19/20 VERSED 1MG WASTED WITH RN LUKE SOARES.
== END 2020-02-20 13:50 | disposition home or self-care (01) | DRG 246 ==
LOC: TELE 02:18 → MED 02-15 09:05 → ICU 02-19 11:15
PROVIDERS: ADMIT Nurse Practitioner Acute Care; ATTEND Student in an Organized Health Care Education/Training Program
PROC: 027135Z Dilation of Coronary Artery, Two Arteries with Two Drug-eluting Intraluminal Devices, Percutaneous Approach (ICD-10-PCS; principal; 2020-02-19)
PROC: 4A023N7 Measurement of Cardiac Sampling and Pressure, Left Heart, Percutaneous Approach (ICD-10-PCS; 2020-02-19)
PROC: B211YZZ Fluoroscopy of Multiple Coronary Arteries using Other Contrast (ICD-10-PCS; 2020-02-19)
PROC: B41FYZZ Fluoroscopy of Right Lower Extremity Arteries using Other Contrast (ICD-10-PCS; 2020-02-19)
DX: I25.110 Atherosclerotic heart disease of native coronary artery with unstable angina pectoris (principal); N17.0 Acute kidney failure with tubular necrosis; E44.0 Moderate protein-calorie malnutrition; D68.69 Other thrombophilia; E11.319 Type 2 diabetes mellitus with unspecified diabetic retinopathy without macular edema; E11.40 Type 2 diabetes mellitus with diabetic neuropathy, unspecified; E11.22 Type 2 diabetes mellitus with diabetic chronic kidney disease; E03.9 Hypothyroidism, unspecified; E78.5 Hyperlipidemia, unspecified; N18.9 Chronic kidney disease, unspecified; Z95.1 Presence of aortocoronary bypass graft; Z90.49 Acquired absence of other specified parts of digestive tract; Z86.718 Personal history of other venous thrombosis and embolism; H91.90 Unspecified hearing loss, unspecified ear; E11.65 Type 2 diabetes mellitus with hyperglycemia; F32.9 Major depressive disorder, single episode, unspecified; E66.01 Morbid (severe) obesity due to excess calories; I12.9 Hypertensive chronic kidney disease with stage 1 through stage 4 chronic kidney disease, or unspecified chronic kidney disease; Z68.34 Body mass index [BMI] 34.0-34.9, adult; Z79.4 Long term (current) use of insulin
CPT/HCPCS: 36415; 71045-TC; 76770-TC; 80048-TC; 80053-TC; 80061-TC; 81000-TC; 82728-TC; 82962-TC; 83540-TC; 83735-TC; 83880; 84100-TC; 84439-TC; 84443-TC; 84484-TC; 85025-TC; 85610-TC; 85730-TC; 86850-TC; 87081-TC; 87086-TC; 87186-TC; 92980; 92981; 93307-TC; 97116-TC; 97530-TC; A6403; A9502; C1725; C1769; C1887; C1894; G0378; G0500; J1644; J1815; J2250; J2785; J3010; J3490; J7030; J7050; Q9967